=== PATIENT | male | born 1985 | race Caucasian/White ===

== ENCOUNTER 2018-07-13 19:02 | Emergency (ER) | payer SELFPAY ==
[~2018-07-13] VITALS: Ht 165.1 cm; Wt 126.0 kg
[2018-07-13] MEDS ORDERED: BENADRYL 50MG C50 MG PO (19:30)
[2018-07-13 19:35] VITALS: BP 126/70
== END 2018-07-13 19:35 | disposition home or self-care (01) | DRG 607 ==
LOC: ED 19:02
DX: L50.9 Urticaria, unspecified (principal); R21 Rash and other nonspecific skin eruption; R22.0 Localized swelling, mass and lump, head; Y93.H2 Activity, gardening and landscaping; Y92.89 Other specified places as the place of occurrence of the external cause; Y99.0 Civilian activity done for income or pay

== ENCOUNTER 2018-11-01 18:02 | Emergency (ER) | payer SELFPAY ==
[~2018-11-01] VITALS: Ht 165.1 cm; Wt 109.0 kg
[~2018-11-01 18:02] MED LIST: BENADRYL 50MG C50 MG PO
[2018-11-01 18:45] LABS: HEMATOCRIT 44.1 % (39.0-50.0); HEMOGLOBIN 14.9 g/dl (14.0-18.0); IMMATURE GRANULOCYTES 0.4 % (0.0-5.0); MEAN CELL VOLUME 87.5 fL CALC (80.0-100.0); MEAN CORPUSCULAR HGB 29.6 pG CALC (26.0-32.0); MEAN CORPUSCULAR HGB CONC 33.8 g/L CALC (32.0-36.0); NEUT# 6.91 thou/uL (1.82-7.42); RED BLOOD COUNT 5.04 mill/uL (4.70-6.10); RED CELL DISTRI WIDTH 12.2 % (11.5-15.5)
[2018-11-01 19:04] LABS: ALBUMIN 4.9 g/dL (3.2-5.0); ALKALINE PHOSPHATASE 55 u/l (38-126); ANION GAP 18 (6-22 (CALC)); BILIRUBIN, TOTAL 0.7 mg/dL (0.0-1.4); BUN 15 mg/dL (9-20); BUN/CREATININE RATIO 17 (12-20 (CALC)); CARBON DIOXIDE 24 mmol/l (22-30); CHLORIDE 102 mmol/l (95-108); CREATININE 0.9 mg/dL (0.7-1.3); GFR > 60 ML/MIN (>=60 (CALC)); GFR FOR AFR.AMER. > 60 ML/MIN (>=60 (CALC)); LIPASE 71 u/l (23-300); POTASSIUM 4.3 mmol/l (3.5-5.1); SGOT/AST 40 u/l (17-59); SODIUM 140 mmol/l (137-146); TOTAL PROTEIN 8.1 g/dL (6.3-8.2)
[2018-11-01 19:11] LABS: URINE BILIRUBIN - DIPSTICK NEGATIVE (NEGATIVE); URINE BLOOD DIPSTICK NEGATIVE (NEGATIVE); URINE COLOR YELLOW; URINE GLUCOSE - DIPSTICK NEGATIVE (NEGATIVE); URINE KETONE NEGATIVE (NEGATIVE); URINE LEUK ESTERASE NEGATIVE (NEGATIVE); URINE NITRITE - DIPSTICK NEGATIVE (Negative); URINE PH 5.5 (4.5-8.0); URINE PROTEIN - DIPSTICK NEGATIVE (NEG-TRACE); URINE SPECIFIC GRAVITY <=1.005; URINE UROBILINOGEN - DIPSTICK 0.2 E.U./dL (0.2)
[2018-11-01 19:15] LABS: BARBITURATES NEGATIVE (NEGATIVE); COCAINE NEGATIVE (NEGATIVE); METHADONE NEGATIVE (NEGATIVE); OXCYCODONE NEGATIVE (NEGATIVE); TETRAHYDROCANNABIONOL NEGATIVE (NEGATIVE); TRICYLIC ANTIDEPRESSANTS NEGATIVE (NEGATIVE)
[2018-11-01] MEDS ORDERED: ORPHENADRINE100 MG PO (20:13)
[2018-11-01] MEDS ORDERED: DICLOFENAC75 MG PO (20:13)
[2018-11-01 20:18] VITALS: BP 111/62
== END 2018-11-01 20:24 | disposition home or self-care (01) | DRG 556 ==
LOC: ED 18:02
DX: M25.522 Pain in left elbow (principal); R07.89 Other chest pain

== ENCOUNTER 2019-02-11 15:03 | Emergency (ER) | payer OTHER ==
[~2019-02-11] VITALS: Ht 165.1 cm; Wt 120.0 kg
[~2019-02-11 15:03] MED LIST changes: +DICLOFENAC75 MG PO; +ORPHENADRINE100 MG PO
[2019-02-11] MEDS ORDERED: TORADOL PO (16:27)
[2019-02-11 16:53] VITALS: BP 138/65
== END 2019-02-11 16:53 | disposition home or self-care (01) | DRG 605 ==
LOC: ED 15:03
DX: S50.02XA Contusion of left elbow, initial encounter (principal); W22.01XA Walked into wall, initial encounter; Y92.009 Unspecified place in unspecified non-institutional (private) residence as the place of occurrence of the external cause